=== PATIENT | female | born 1970 | race Caucasian/White ===

== ENCOUNTER 2020-04-17 06:14 | Inpatient (IN) | payer MEDICARE ==
[2020-04-17] MEDS ORDERED: Bupivacaine 0.5% 50 ML MDV ONE (06:54)
[2020-04-17] MEDS: Sodium Chloride 0.9% 1,000 ML IV SCH ×2 (07:11→10:08)
[2020-04-17] MEDS ORDERED: fentaNYL 250 MCG/5 ML SDV ONE (07:14)
[2020-04-17] MEDS ORDERED: Neostigmine Methylsulfate 1 MG/ML 5 ML Syringe ONE (07:14)
[2020-04-17] MEDS ORDERED: Rocuronium 50 MG/5 ML Vial ONE (07:14)
[2020-04-17] MEDS ORDERED: Dexamethasone 4 MG/ML SDV ONE (07:14)
[2020-04-17] MEDS ORDERED: Glycopyrrolate 0.2 MG/ML 5 ML MDV ONE (07:14)
[2020-04-17] MEDS ORDERED: Propofol 200 MG/20 ML SDV ONE (07:14)
[2020-04-17] MEDS ORDERED: Ondansetron 4 MG/2 ML SDV ONE (07:14)
[2020-04-17] MEDS ORDERED: Ropivacaine 35 ML, dexAMETHasone 8 MG, EPINEPHrine 0.4 MG, Sodium Chloride 0.9% 42.6 ML NERVRT SCH ×4 (07:30)
[2020-04-17] MEDS ORDERED: hydrOXYzine HCL 100 MG/2 ML SDV IM PRN (08:02)
[2020-04-17] MEDS ORDERED: Benzocaine/Cetylpyridinium/Menthol Lozenge MUCMEM PRN (08:02)
[2020-04-17] MEDS ORDERED: Docusate Sodium 100 MG Cap PO PRN (08:02)
[2020-04-17] MEDS ORDERED: Acetaminophen/HYDROcodone 325-5 MG Tab PO PRN ×2 (08:02→11:38)
[2020-04-17] MEDS: ceFAZolin 2 GM in Premix Bag 1 BAG IV ONE ×2 (08:13→09:53)
[2020-04-17] MEDS: metroNIDAZOLE/Normal Saline 500 MG in Premix Bag 1 BAG IV ONE ×2 (08:13→09:53)
[2020-04-17] MEDS ORDERED: fentaNYL 100 MCG/2 ML SDV ONE ×2 (08:18→08:39)
[2020-04-17] MEDS ORDERED: Labetalol 20 MG/4 ML Syringe ONE (08:21)
[2020-04-17] MEDS ORDERED: Ketorolac 60 MG/2 ML SDV ONE (08:24)
[2020-04-17] MEDS: tiZANidine 2 MG Tab PO PRN ×2 (12:02→21:00)
[2020-04-17] MEDS ORDERED: Sodium Chloride 0.9% 1,000 ML IV ONE (14:03)
[2020-04-17] MEDS: Acetaminophen/HYDROcodone 325-10 MG Tab PO PRN (17:43)
[2020-04-17] MEDS ORDERED: Ketorolac 60 MG/2 ML SDV IM ONE (18:00)
[2020-04-18] MEDS: Acetaminophen/HYDROcodone 325-10 MG Tab PO PRN ×4 (03:45→23:39)
[2020-04-18] MEDS: tiZANidine 2 MG Tab PO PRN ×2 (08:01→18:35)
[2020-04-18] MEDS ORDERED: Iopamidol 612 MG/ML 500 ML Multipack Bottle IV ONE (08:36)
--- NOTE | 2020-04-18 09:39 | CT ---
Abdomen Pelvis w Cont CLINICAL HISTORY: Evaluate for hematoma status post laparoscopy COMPARISON: None. TECHNIQUE: Axial tomographic images are obtained from the dome of the diaphragm to the pubic symphysis without IV contrast enhancement. No contrast was used. The dosage reduction and iterative reconstruction techniques employed. FINDINGS: The lung bases show some patchy bibasal airspace disease right greater than left. This is most likely some atelectasis. There is a minimal right pleural effusion. There is a large amount of free fluid in the abdomen. The density measures slightly high suggesting there is some fluid and blood. There is a large lobulated density along the right anterior abdomen. This is likely hematoma. It measures 16.5 x 8.3 x 7.2 cm maximum dimensions. There is a small amount of postoperative free air. There is gas and feces throughout the colon. Small intestinal configuration is nonacute. The liver shows no mass. There is some intrahepatic and common bile duct dilatation. Common duct measures 13 mm in the pancreatic head. Pancreas duct is visualized but not dilated. The gallbladder has been removed. The spleen has a normal size and shape. The pancreas appears free of mass or inflammatory change. The adrenal glands are normal bilaterally. The kidneys show no mass, stones or hydronephrosis. Ureters have a normal course and caliber. Bladder has a normal contour.. The uterus is heterogeneous and enlarged. There is a 1.5 cm cystlike structure in the left adnexal region with free fluid in the pelvis. The aorta has a normal course and caliber. There is no suspicious retroperitoneal adenopathy. IMPRESSION: Moderate free intraperitoneal fluid with slightly high density is consistent with blood and fluid mixed. There is also large heterogeneous mass in the anterior right abdomen of higher density which is likely hematoma. This extends upward into the remy hepatis region. Patient is status post laparoscopic cholecystectomy. Biliary dilatation. This was seen to a lesser degree on an ultrasound from December 2019 Moderate uterine enlargement consistent with fibroid uterus also seen on a December ultrasound. Dr. Luis was notified by phone of the findings at the time of this dictation at 9:35 AM.
--- NOTE | 2020-04-18 09:42 | OR ---
DATE OF PROCEDURE: 04/17/2020 SURGEON: Ever Luis MD PROCEDURE: Transversus abdominis plane block bilaterally. COMPLICATION: None. EDUCATION RN: None. PREOPERATIVE DIAGNOSIS: Requirement for pain management. POSTOPERATIVE DIAGNOSIS: Requirement for pain management. RISK: Risks, benefits, alternatives, and limitations including, but not limited to, infection, bleeding, and injury to abdominal structures were explained to the patient, who wished to proceed. DESCRIPTION OF PROCEDURE: The patient was placed in supine position. The left transversus plane was identified first. This was injected with 80% solution. The other side was then injected in the same manner, same fashion, same technique, and the same sequence using the same equipment. The patient tolerated the procedure well. Ever Luis MD /[id number]
--- NOTE | 2020-04-18 10:12 | OR ---
DATE OF PROCEDURE: 04/17/2020 SURGEON: Ever Luis MD PROCEDURE: Laparoscopic cholecystectomy. COMPLICATIONS: None. QUOTATION CLERK: None. ANESTHETIC: General/local. RISKS: Risks, benefits, alternatives, and limitations including, but not limited to, infection, bleeding, cystic duct leak and common bile duct injury, possibility of open surgery, seroma, hematoma, biloma, and other risks not listed here were explained to the patient and wished to proceed. DESCRIPTION OF PROCEDURE: The patient was placed in supine position. A supraumbilical curvilinear incision was made. A Veress needle was used to enter the abdomen without abnormality. A drop test was performed without abnormality. The abdomen was subsequently insufflated. This was followed by two 10 mm ports and two 5 mm ports. The gallbladder was retracted cephalad. The infundibulum was retracted inferolaterally. Using blunt dissection, a "clear view" of the gallbladder was obtained with a single pulsatile structure in the gallbladder and a single nonpulsatile structure in the gallbladder. The artery was clipped and the duct was stapled and this was slightly larger than a clip. The remaining 1/3 of the gallbladder was removed off the gallbladder bed without any difficulty. This was removed through a superior port. The abdomen was re-insufflated. The gallbladder fossa was addressed for minor bleeding with electrocautery. The abdomen was irrigated with 1 L of irrigation. No enterotomy or injury was noted. The patient did have 2 small adhesions from previous port sites. These were broken down using blunt dissection; however, no abnormal bleeding was noted after the removal including inspection with 7 mmHg pressure and no bile adhesion. The wounds were closed with 3-0 Vicryl and 4-0 Vicryl in interrupted running fashion. The patient tolerated the procedure well. Ever Luis MD /[id number]
[2020-04-18] MEDS ORDERED: Ondansetron 4 MG/2 ML SDV ONE (10:57)
[2020-04-18] MEDS ORDERED: Rocuronium 50 MG/5 ML Vial ONE (10:57)
[2020-04-18] MEDS ORDERED: Dexamethasone 4 MG/ML SDV ONE (10:57)
[2020-04-18] MEDS ORDERED: Glycopyrrolate 0.2 MG/ML 5 ML MDV ONE (10:57)
[2020-04-18] MEDS ORDERED: Neostigmine Methylsulfate 1 MG/ML 5 ML Syringe ONE (10:57)
[2020-04-18] MEDS ORDERED: Succinylcholine 200 MG/10 ML MDV ONE (10:57)
[2020-04-18] MEDS ORDERED: Propofol 200 MG/20 ML SDV ONE (10:57)
[2020-04-18] MEDS ORDERED: fentaNYL 250 MCG/5 ML SDV ONE (10:59)
[2020-04-18] MEDS ORDERED: Morphine 2 MG/ML SYRINGE IVPUSH PRN (11:17)
--- NOTE | 2020-04-18 14:04 | PN ---
DATE OF SERVICE: 04/18/2020 SUBJECTIVE: The patient is doing well. She had some dizziness yesterday. No nausea, vomiting, shortness of breath, or chest pain. OBJECTIVE: VITAL SIGNS: Stable. CARDIOVASCULAR: Regular rate and rhythm. RESPIRATORY: Lungs are clear to auscultation bilaterally. Incision is healing well. ABDOMEN: Mildly distended. ASSESSMENT: Status post laparoscopic cholecystectomy. PLAN: The patient's hemoglobin has dropped today. We will order ultrasound to evaluate for hematoma. Also, we will give her 2 units of packed red blood cells. Change her to inpatient. Continue same diet and activity level. Ever Luis MD /[id number]
[2020-04-18] MEDS ORDERED: Ropivacaine 35 ML, dexAMETHasone 8 MG, EPINEPHrine 0.4 MG, Sodium Chloride 0.9% 42.6 ML NERVRT SCH ×4 (16:30)
[2020-04-18] MEDS ORDERED: fentaNYL 100 MCG/2 ML SDV ONE ×2 (17:05→17:31)
[2020-04-18] MEDS: Bupivacaine 0.5%/EPINEPHrine 1:200,000 50 ML MDV ONE ×2 (17:20→17:35)
[2020-04-18] MEDS: Sodium Chloride 0.9% 1,000 ML IV SCH (18:36)
[2020-04-18] MEDS: Zolpidem 5 MG Tab PO PRN (23:39)
[2020-04-19] MEDS: Acetaminophen/HYDROcodone 325-10 MG Tab PO PRN ×3 (07:30→23:05)
[2020-04-19] MEDS: tiZANidine 2 MG Tab PO PRN (07:30)
--- NOTE | 2020-04-19 07:55 | OR ---
DATE OF PROCEDURE: 04/18/2020 SURGEON: Ever Luis MD PROCEDURE: 1. Diagnostic laparoscopy. 2. Evacuation of hematoma. FINDINGS: 1. Approximately 800 mL of old clot. 2. No definitive etiology for bleeding source. 3. No new blood. COMPLICATIONS: None. ELECTRICAL CAD DESIGNER: None. PREOPERATIVE DIAGNOSIS: Abdominal pain. POSTOPERATIVE DIAGNOSIS: Abdominal pain. RISKS: Risks, benefits, alternatives, and limitations including, but not limited to, infection, bleeding, injury to abdominal structures, perforation of bowel, bladder, aorta, requirement for open surgery, and other risks not listed here were explained to the patient, and they wished to proceed. We also discussed infection and biloma. PROCEDURE IN DETAIL: The patient was placed in supine position. The previous periumbilical incision was opened. The port was introduced under direct visualization and subsequently insufflated. Two additional 5 mm ports were also re-entered. There was noted to be a large amount of clot. Over the next 20 to 30 minutes, suction irrigation techniques were used to remove the most possible. 3 L of irrigation was used to irrigate the abdomen. The liver bed was inspected. There was no active bleeding at that area. There was no clot in that area. No bile was noted during the procedure. The clot was diffuse throughout the abdomen. This was irrigated and suctioned as described previously. The pelvis was inspected, suction irrigated, the liver and the same with splenic area and left lower quadrant around the sigmoid colon. No etiology of the bleeding was noted. Most likely etiology based on the clot would be bleeding from the port site. A single 10 flat Oswald-Hurley drain was placed. This was sutured into place. Wounds were closed with 3-0 Vicryl and 4-0 Vicryl after irrigation. The patient tolerated the procedure well. Ever Luis MD /[id number]
--- NOTE | 2020-04-19 11:15 | PN ---
DATE OF SERVICE: 04/19/2020 SUBJECTIVE: The patient is doing significantly better today. Pain is well controlled. No nausea, vomiting, shortness of breath, or chest pain. OBJECTIVE: VITAL SIGNS: Stable. CARDIOVASCULAR: Regular rhythm and rate. RESPIRATORY: Lungs are clear to auscultation bilaterally. Output drain serosanguineous. ASSESSMENT: Status post hematoma evacuation. PLAN: The patient and I had a long discussion about remaining here versus discharge. She would like to go home. As her hemoglobin did drop a little, we will recheck this in a.m. However, the Oswald-Hurley output has decreased significantly. The patient subjectively feels significantly better and there is no evidence of active bleeding. Please see discharge summary for further details. However, she will have hemoglobin checked in the a.m. Ever Luis MD /[id number]
[2020-04-19] MEDS: Zolpidem 5 MG Tab PO PRN (23:05)
[2020-04-20] MEDS: Acetaminophen/HYDROcodone 325-10 MG Tab PO PRN ×2 (06:48→14:05)
--- NOTE | 2020-04-20 12:08 | PN ---
DATE OF SERVICE: 04/20/2020 SUBJECTIVE: The patient continues to improve. No nausea, vomiting, shortness of breath, or chest pain. OBJECTIVE: VITAL SIGNS: Stable. Drain output is minimal. CARDIOVASCULAR: Regular rhythm and rate. RESPIRATORY: Lungs are clear to consultation bilaterally. ABDOMEN: Incision is healing well. ASSESSMENT: Status post laparoscopic cholecystectomy and hematoma evacuation. PLAN: Her hemoglobins remained fairly stable. We will transfuse her 1 more time before she will be discharged today. Follow up with Surgery in 7 to 14 days. Please see discharge summary for further details. Ever Luis MD /[id number]
[2020-04-20 15:28] VITALS: BP 122/59; PULSE 88
--- NOTE | 2020-04-21 07:10 | DISCH ---
DISCHARGE DIAGNOSIS: Status post laparoscopic cholecystectomy. SUMMARY OF HOSPITAL COURSE: A pleasant 49-year-old female who underwent an uneventful laparoscopic cholecystectomy. The patient developed postoperative bleeding and had hematoma evacuation. No etiology of the bleeding was noted. Prior to discharge, her pain is well controlled. No nausea, vomiting, shortness of breath, or chest pain. She had a Oswald- Hurley drain. Follow up with Surgery in 7 to 14 days. She will have hemoglobin checked tomorrow and we will check that. /[id number]
--- NOTE | 2020-04-21 07:10 | DISCH ---
ADDENDUM: The patient did stay an additional 24 hours for an additional blood transfusion. However, on her discharge her pain was well controlled. She will stay on the same home pain medications. Follow up with Surgery in 7 to 14 days. We did discuss the signs and symptoms of anemia and/or active bleeding with her. /[id number]
== END 2020-04-20 16:00 | disposition home or self-care (01) | DRG 418 ==
LOC: JP.SDS 06:14 → JP.MS 08:00 → JP.SDS 04-18 07:54
PROVIDERS: ADMIT Surgery; ATTEND Surgery
PROC: 0FT44ZZ Resection of Gallbladder, Percutaneous Endoscopic Approach (ICD-10-PCS; principal; 2020-04-17)
PROC: 0WCG0ZZ Extirpation of Matter from Peritoneal Cavity, Open Approach (ICD-10-PCS; 2020-04-18)
DX: K81.1 Chronic cholecystitis (principal); K91.870 Postprocedural hematoma of a digestive system organ or structure following a digestive system procedure; G89.4 Chronic pain syndrome; M79.7 Fibromyalgia; Z79.899 Other long term (current) drug therapy; Z88.2 Allergy status to sulfonamides; Z88.1 Allergy status to other antibiotic agents
CPT/HCPCS: 36415; 36430; 74177; 74177-26; 80048; 80053; 81025; 85014; 85018; 85025; 85027; 86850; 86900; 86901; 86920; 86922; 88304; A9270-GY; J0171; J0330; J0690; J1100; J1885; J2270; J2405; J2704; J2710; J2795; J3010; J3490; J7030; J7120; P9016; Q9967

== ENCOUNTER 2021-08-10 08:35 | Day surgery (SDC) | payer MEDICARE ==
[~2021-08-10 08:35] MED LIST: Midazolam 1 MG/ML 2 ML SDV ONE; Propofol 200 MG/20 ML SDV ONE; fentaNYL 100 MCG/2 ML SDV ONE
[2021-08-10] MEDS ORDERED: Sodium Chloride 0.9% 1,000 ML IV SCH (09:00)
[2021-08-10] MEDS ORDERED: Propofol 200 MG/20 ML SDV ONE ×2 (10:17→11:17)
[2021-08-10 11:28] VITALS: BP 151/89; PULSE 85
== END 2021-08-10 12:04 | disposition home or self-care (01) ==
LOC: JP.SDS 08:35
PROVIDERS: ATTEND Surgery
DX: K92.1 Melena (principal); K20.90 Esophagitis, unspecified without bleeding; K22.89 Other specified disease of esophagus; M79.7 Fibromyalgia; Z88.8 Allergy status to other drugs, medicaments and biological substances; Z88.2 Allergy status to sulfonamides
CPT/HCPCS: 43239; 45378; J2250; J2704; J3010; J7030; 88305

== ENCOUNTER 2023-10-07 08:43 | Day surgery (SDC) | payer MEDICARE ==
[2023-10-07] MEDS: Lactated Ringers 1,000 ML IV SCH (09:29)
[2023-10-07] MEDS: Ondansetron 4 MG/2 ML SDV IVPUSH ONE (09:37)
[2023-10-07] MEDS ORDERED: Propofol 200 MG/20 ML SDV ONE (10:20)
[2023-10-07] MEDS ORDERED: fentaNYL 50 MCG/ML SDV ONE (10:20)
[2023-10-07] MEDS ORDERED: Midazolam 1 MG/ML 2 ML SDV ONE (10:20)
[2023-10-07 12:10] VITALS: BP 130/77; PULSE 71
== END 2023-10-07 12:41 | disposition home or self-care (01) ==
LOC: JP.SDS 08:43
PROVIDERS: ATTEND Family Medicine
DX: K29.50 Unspecified chronic gastritis without bleeding (principal); K21.9 Gastro-esophageal reflux disease without esophagitis; R10.13 Epigastric pain; F32.A Depression, unspecified; F41.1 Generalized anxiety disorder; M25.50 Pain in unspecified joint; M79.7 Fibromyalgia; Z79.899 Other long term (current) drug therapy; Z88.2 Allergy status to sulfonamides
CPT/HCPCS: 43239; 88305; J2250; J2405; J2704; J3010; J7120